=== PATIENT | female | born 1990 | race American Indian/Alaskan Native ===

== ENCOUNTER 2017-01-14 10:39 | Emergency (ER) | payer SELFPAY | END 2017-01-14 11:10 | disposition left against medical advice (07) | LOC: ED 10:39 | DX: R10.9 Unspecified abdominal pain (principal); Z53.21 Procedure and treatment not carried out due to patient leaving prior to being seen by health care provider ==

== ENCOUNTER 2017-04-30 17:40 | Emergency (ER) | payer SELFPAY ==
[2017-04-30 19:03] LABS: Bilirubin,Urine NEG (Negative); Blood,Urine NEG (Negative); Ketones,Urine NEG (Negative); Leukocyte Esterase,Urine NEG (Negative); Mucus,Urine FEW /HPF; Nitrite,Urine NEG (Negative); Protein,Urine <15 mg/dL mg/dL (Negative); Urobilinogen,Urine < 2.0 mg/dL (<2.0); WBC,Urine < 1.0 /HPF (0.0-6.0)
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
[2017-04-30] MEDS ORDERED: MOTRIN PO ONE (21:57)
[2017-04-30] MEDS ORDERED: FLEXERIL PO ONE (21:57)
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
[2017-04-30 23:26] VITALS: BP 149/97
== END 2017-04-30 23:27 | disposition home or self-care (01) ==
LOC: ED 17:40
DX: S90.32XA Contusion of left foot, initial encounter (principal); M54.2 Cervicalgia; M54.5 Low back pain; V49.9XXA Car occupant (driver) (passenger) injured in unspecified traffic accident, initial encounter; Y93.89 Activity, other specified; Y92.89 Other specified places as the place of occurrence of the external cause; Y99.8 Other external cause status
CPT/HCPCS: 70450; 81001; 81025; 99285